=== PATIENT | female | born 1985 | race Two or more races ===

== ENCOUNTER 2019-03-04 19:18 | Observation (INO) | payer MEDICAID ==
[~2019-03-04] VITALS: Ht 165.1 cm; Wt 87.5 kg
[2019-03-04 20:11] LABS: Urine WBC None Seen /hpf (0 - 5)
[2019-03-04 20:26] LABS: Urine Bacteria MOD /hpf (None Seen); Urine Blood Negative /uL (Negative); Urine Specific Gravity 1.003 (1.001-1.035)
== END 2019-03-04 20:42 | disposition home or self-care (01) | DRG 563 ==
LOC: LDRP 19:18 → EDUNIT# 19:18
PROVIDERS: ADMIT Specialist; ATTEND Specialist
DX: O60.02 Preterm labor without delivery, second trimester (principal); Z3A.23 23 weeks gestation of pregnancy; Z87.891 Personal history of nicotine dependence
CPT/HCPCS: 59025; 81001; 81002; 87086; G0378